=== PATIENT | female | born 1985 | race Caucasian/White ===

== ENCOUNTER 2020-01-11 13:37 | Emergency (ER) | payer SELFPAY ==
[2020-01-11 13:56] VITALS: BP 124/83; PULSE 77; RESP 16; TEMP 36.5; O2SAT 100
[2020-01-11 14:56] VITALS: BP 138/89; PULSE 73; RESP 18; O2SAT 100
--- NOTE | 2020-01-11 15:09 | ED_ITS ---
HPI - General: Chief complaint: Vaginal Bleeding Stated complaint: VAG BLEEDING/ 9 WEEKS PREG Time Seen by Provider: 01/11/20 14:56 Source: patient Mode of arrival: ambulatory Limitations: no limitations History of Present Illness: HPI Narrative: 34-year-old female who is currently 8 to 9 weeks states she has had vaginal bleeding over the last 4 days. Patient states that she been passing very small clots and denies any tissue. She had very slight abdominal cramps rates a 2 out of 10. Denies any worsening improving factors. She is unsure what her blood type is. Denies any vomiting. Date of Last Menstrual Period: 11/05/19 Associated symptoms: Reports abdominal pain; Deny headache(s) Related Data: : 5 Review of Systems Const: Denies: fever(s), chills, body aches or change in appetite Eyes: Denies: blurry vision or eye discomfort ENMT: Denies: throat pain or dental pain Card: Denies: chest pain Resp: Denies: dyspnea GI: Reports: abdominal pain : Reports: vaginal bleeding Musc: Denies: neck pain or back pain Skin/Breast: Denies: rash Neuro: Denies: headache(s) Psych: Denies: depression Shankar/Lymph: Denies: easy bruising All/Imm: Denies: urticaria PFSH ED PFSH: Social History (Updated 01/11/20 @ 14:01 by Ethan Watkins RN) Smoking and tobacco status: never smoked Alcohol intake: current Alcohol intake frequency: holidays/special occasions only Substance/Drug Use: never Female Reproductive History: Date of last menstrual period: 11/05/19 : 5 Physical Exam Const: COMMON NORMALS: no acute distress, patient oriented x3 and healthy appearing HENMT: COMMON NORMALS: normocephalic and atraumatic HEAD & SCALP: normocephalic and atraumatic Eye: COMMON NORMALS: Equal, round and reactive pupils present and EOMs intact bilaterally PUPIL: Yes Equal, round and reactive pupils present Neck/C-Spine: COMMON NORMALS: full ROM and supple Chest: COMMONS NORMALS: normal inspection of the chest and normal palpation of entire chest wall Resp: COMMON NORMALS: normal respiratory effort, No retractions, No use of accessory muscles and clear to auscultation bilaterally AUSCULTATION: clear to auscultation bilaterally Cardio: COMMON NORMALS: regular rate, regular rhythm and No murmurs present (Cardio) RATE: regular rate RHYTHM: regular rhythm GI: COMMON NORMALS: Normal to inspection, nondistended, normoactive bowel sounds present, Soft to palpation, non-tender and no masses PALPATION: Yes Soft to palpation Extremity: COMMON NORMALS: normal to inspection and full ROM Neuro: COMMON NORMALS: patient oriented x3, moves all extremities and no focal motor deficits Psych: COMMON NORMALS: mental status grossly normal, Normal thought process present and cooperative THOUGHT PROCESS: Normal thought process present Skin: COMMON NORMALS: no rashes or lesions noted and no wounds GENERAL SKIN EXAM: no rashes or lesions noted Course Vital Signs: Vital signs: Vital Signs Temperature 97.7 F 01/11/20 13:56 Pulse Rate 73 01/11/20 14:56 Respiratory Rate 18 01/11/20 14:56 Blood Pressure 138/89 01/11/20 14:56 Pulse Oximetry 100 01/11/20 14:56 MDM - OB/Uterine Contractions MDM Narrative: Medical decision making narrative: Patient presents here with threatened miscarriage. Patient's not having a large amount of bleeding. Her bedside ultrasound here showed IUP consistent with dates with heart rate of 148. Patient's blood type is a positive. She is stable for discharge and is to follow-up with [facility] and return if worsening. She understands and agrees to plan. Lab Data: Labs: Lab Results 01/11/20 01/11/20 Range/Units 14:16 14:16 Ser , [place]Qnt 28506.00 mIU/mL Blood Type A Positive Rho(D) Type Positive Discharge Plan Discharge Patient Disposition: Home Clinical Impression: Threatened miscarriage Condition: Stable Prescriptions: No Action cephalexin 500 mg capsule 500 mg PO Q6H RF: 0 Discharge Orders: Discharge Order (Routine); Ordered 01/11/20 Ordered By: Tatyana Guzman Referrals: Max Carbajal MD [Primary Care Provider] - 1-3 days Discharge Diet: Advance as tolerated Discharge Activity: Resume usual activity Patient Instructions: Threatened Miscarriage (ED) Coding Level of Care Code ED Stained Glass Installer for g Fwd Exam Comprehensive
[2020-01-11 15:45] VITALS: BP 132/86; PULSE 72; RESP 16; TEMP 37.1; O2SAT 96
--- NOTE | 2020-01-12 09:26 | DCPLANNER ---
recycling operations manager had message to schedule a follow up appointment for patient with Dr. Carbajal at [facility]. recycling operations manager called [facility], a follow up appointment was scheduled for Friday, January 17, 2020 at 8:[address] Siegel. recycling operations manager told clinic that the referral was for Dr. Carbajal, corrections caseworker was told that patient seen Dr. Siegel with her last , so they would schedule the appointment with Dr. Siegel. recycling operations manager asked that if patient wanted to change the appointment to be scheduled with Dr. Carbajal would there be any problems. recycling operations manager was told that there would not be any problems. recycling operations manager called patient and informed her of the scheduled appointment, patient stated that she wanted to see Dr. Carbajal. recycling operations manager offered to call and reschedule the appointment, patient stated that she would call and reschedule the appointment with Dr. Carbajal.
== END 2020-01-11 15:49 | disposition home or self-care (01) ==
PROVIDERS: Emergency Provider Emergency Medicine; PCP Family Medicine
DX: O20.0 Threatened abortion (principal); Z3A.08 8 weeks gestation of pregnancy
CPT/HCPCS: 12345; 36415; 84702; 86900; 99281; 99282

== ENCOUNTER 2020-07-22 05:00 | Inpatient (IN) | payer SELFPAY ==
--- NOTE | 2020-07-03 09:37 | ANES.PREANE2 ---
Pre-Anesthetic Assessment Pre-Anesthetic Assessment: Height/Weight: Height 1.7 m Preop Diagnosis: IUP Proposed Procedure: Operation Date: 07/22/20 07:00 Proposed Procedures p Section Repeat(Not Applicable) - Max Carbajal MD Familial anesthetic complications: none Social: Social History: No alcohol and No tobacco Exam: Pre-Anes Outpt Exam: alert, oriented x 3, clear to auscultation bilaterally and regular rate & rhythm Airway: Cervical ROM: WNL MP: 3 Dentition: Chipped (front) Anesthetic Plan: ASA status: 2 Anesthesia: Regional (specify below) Risk of > 500 ml blood loss (7ml/kg in children): Yes, adequate IV access and fluids planned PFSH Anesthesia PFSH: Social History (Updated 01/11/20 @ 14:01 by Ethan Watkins RN) Smoking and tobacco status: never smoked Alcohol intake: current Alcohol intake frequency: holidays/special occasions only Female Reproductive History: Date of last menstrual period: 11/05/19 Data Anesthesia Cardiac Studies: No Data to Display
[2020-07-22] VITALS (23 sets, daily range): BP systolic 95–156; BP diastolic 62–94; PULSE 75–101; RESP 14–18; TEMP 36–36.8; O2SAT 98–100; BMI 24.4
[2020-07-22 05:31] LABS: Basophils # 0.1 10^3/uL (0.0-0.1); Basophils % 0.5 %; Eosinophils # 0.1 10^3/uL (0.0-0.8); Eosinophils % 1.5 %; Hematocrit 36.9 % (37.0-47.0); Hemoglobin 11.3 g/dL (11.5-15.3); Lymphocytes # 2.1 10^3/uL (0.8-4.8); Lymphocytes % 22.7 %; Mean Corpuscular HGB Conc 30.6 g/dL (30.0-36.0); Mean Corpuscular Hemoglobin 25.3 pg (28.0-34.0); Mean Corpuscular Volume 82.6 fL (81-99); Monocytes # 0.7 10^3/uL (0.2-0.9); Monocytes % 7.9 %; Neutrophils # 6.15 10^3/uL (1.8-7.7); Nucleated Red Blood Cells % 0 %; Platelet Count 350 10^3/cmm (130-400); Red Blood Count 4.47 10^6/uL (4.1-5.3); White Blood Count 9.2 10^3/uL (4.0-10.0)
[2020-07-22] MEDS: lactated ringers 1,000 ML 999 ML IV (05:42)
--- NOTE | 2020-07-22 06:41 | P.HP_ITS ---
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 She has a history of a previous uterine rupture during a TOLAC. Thankfully, both the patient and the baby did well. As result, we were proceeding with a section at 37 weeks. Her is been unremarkable. The patient declined much of her blood work because of her self-pay status. Her blood type is A positive. Present Details : 3 Para: 2 Date of Last Menstrual Period: 11/05/19 Calculated Date of Delivery: 08/11/20 Gestational Age Based on Last Menstrual Period: 37 Labs Rubella: Immune RPR: Negative GBS: Unknown Review of Systems General: Reports: 10 or more systems reviewed and unremarkable except in HPI and below Const: Reports: fatigue; Denies: fever(s) Eyes: Denies: change in vision Card: Denies: chest pain Shankar/Lymph: Denies: easy bruising Medications/Allergies Home Medications Medication Instructions Recorded Confirmed Last Taken Type cephalexin 500 mg PO Q6H 01/11/20 01/11/20 01/11/20 History Allergies Allergy/AdvReac Type Severity Reaction Status Date / Time No Known Allergies Allergy Verified 01/11/20 14:00 PFSH 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 PFSH: Social History Smoking and tobacco status: never smoked Alcohol intake: current Alcohol intake frequency: holidays/special occasions only Vitals/I&O/Wt Last Vital Signs Temp 96.8 F L 07/22/20 05:31 Pulse 78 07/22/20 05:31 BP 110/74 07/22/20 05:31 Weight last 48 hrs Weight 156 lb Physical Exam Const: COMMON NORMALS: patient oriented x3 and alert HENMT: COMMON NORMALS: moist oral mucous membranes HEAD & SCALP: normal to inspection Chest: COMMONS NORMALS: normal inspection of the chest Resp: COMMON NORMALS: clear to auscultation bilaterally AUSCULTATION: clear to auscultation bilaterally Cardio: COMMON NORMALS: regular rate and regular rhythm RATE: regular rate RHYTHM: regular rhythm GI: INSPECTION: Yes normal to inspection and Yes other (Gravid) Extremity: COMMON NORMALS: normal to inspection GENERAL: Yes edema (Trace) Neuro: COMMON NORMALS: patient oriented x3, moves all extremities and no sensory deficits noted SENSORIUM/ORIENTATION: Yes alert Psych: COMMON NORMALS: mental status grossly normal Skin: COMMON NORMALS: no rashes or lesions noted GENERAL SKIN EXAM: no rashes or lesions noted Data : 07/22/20 05:25 A&P Assessment and plan (1) History of rupture of uterus: We will proceed with a section. We have discussed the risks of bleeding, infection, and damage to intra-abdominal organs. She has no further questions and wishes to proceed. Status: Acute (2) 37 weeks gestation of : Status: Acute Attestations Medical Necessity Statement*: I Anticipate routine and post C-secti on care. Coding Level of Care Code Acute Quantitative Analyst for Cezar Sarmiento Diagnoses History of rupture of uterus Z87.828 37 weeks gestation of Z3A.37
[2020-07-22] MEDS: citric acid-sodium citrate 30 mL UDC PO (06:47)
[2020-07-22] MEDS: famotidine 20 mg/2 mL INJ IVP (06:47)
[2020-07-22] MEDS: metoclopramide 5 mg/mL SDV 2 mL 10 MG IVP (06:47)
--- NOTE | 2020-07-22 06:47 | P.ANESUD_ITS ---
Pre-Anesthetic Update Pre-Anesthetic Assessment: Date of Surgery/Procedure: 07/22/20 Preop Kaylynn gnosis: IUP Proposed Procedure: Operation Date: 07/22/20 07:00 Proposed Procedures p Section Repeat(Not Applicable) - Max Carbajal MD Any changes to Pre-Anesthetic Assessment?: No Last Intake: Intake Last Liquid Date 07/21/20 Last Liquid Time 21:00 Last Solid Date 07/21/20 Last Solid Time 21:00 Labs Last 48hrs: Laboratory Results - last 48 hr 07/22/20 05:25 WBC 9.2 RBC 4.47 Hgb 11.3 L Hct 36.9 L MCV 82.6 MCH 25.3 L MCHC 30.6 RDW 14.0 Plt Count 350 MPV 11.0 H Neut % (Auto) 67.0 Lymph % (Auto) 22.7 Posey % (Auto) 7.9 Eos % (Auto) 1.5 Baso % (Auto) 0.5 Neut # (Auto) 6.15 Lymph # (Auto) 2.1 Posey # (Auto) 0.7 Eos # (Auto) 0.1 Baso # (Auto) 0.1 Nucleated RBC % (a uto) 0 Nucleated RBCs # 0.0 Vitals: Temperature 96.8 F L 07/22/20 05:31 Temperature Source Temporal Artery S can 07/22/20 05:18 Pulse Rate 78 07/22/20 05:31 Pulse Rhythm 07/22/20 05:20 Pulse Strength 3+ Normal 07/22/20 05:20 Respiratory Effort Non-Labored 07/22/20 05:20 Respiratory Depth Normal 07/22/20 05:20 Respiratory Patter n 07/22/20 05:20 Blood Pressure 110/74 07/22/20 05:31 Oxygen Delivery Me thod 07/22/20 06:03 Exam: Pre-Anes Outpt Exam: alert, oriented x 3, clear to auscultation bilaterally and regular rate & rhythm Cardiac Studies: No Data to Display
--- NOTE | 2020-07-22 08:17 | PM.OP ---
Operative Report Date of procedure: July 22, 2020 Pre-op Diagnosis: History of uterine rupture, 37 weeks gestational age Post-op diagnosis: same Procedure Done: 1. Repeat lower transverse section Specimens removed/disposition: 1. Male with a weight of 5 pounds and Apgars of 8 and 9 Pathology: none sent Surgeon: Max Carbajal Anesthesia: Other (Spinal) Estimated blood loss (mL): 400 Condition: stable Disposition: floor (OB) Brief History: Refer to history and physical Procedure: The patient was brought back to the operating room where she was prepped and draped in usual sterile fashion. Anesthesia was found to be adequate. A lower transverse skin incision was then made with a #10 blade. I then dissected down to the underlying subcutaneous tissue until arriving at the prerectal fascia. The fascia was then nicked with the scalpel bilaterally. The fascial incisions were then carried laterally with Sherman scissors. Attention was then turned to the superior aspect of the incision which was grasped with kochers and tented up away from the underlying rectus abdominis muscles. The muscles were then dissected away from the fascia manually, and later with Sherman scissors. Attention was then turned to the inferior aspect of the incision, and the fascia was dissected away from the underlying muscle in similar fashion. The rectus abdominis muscles were then spread manually. The peritoneum was entered manually. Excellent visualization of the uterus was noted. A lower transverse uterine incision was then made with a #10 blade. Upon arriving at the intrauterine cavity, the uterine incision was then extended manually. The was noted to be in vertex position. The baby was delivered without difficulty. After delivery of the head, the mouth and nose were suctioned at the site of the incision. There was no meconium. There was no nuchal cord. The remainder of the body was then delivered and placed on the abdomen. The cord was cut and clamped. The baby was then handed to the waiting nurse. The placenta was removed intact. The uterus was externalized. The intrauterine cavity was cleansed of any remaining debris. The uterine incision was reapproximated in 1 layer because of the thin uterine wall.. The first layer was performed with 0 Vicryl in a running locked stitch. The uterus was replaced into the abdomen. The peritoneum was then irrigated with warm saline. I reexamined the uterine incision and found it to be hemostatic. The rectus abdominis muscles were then reapproximated using 0 Vicryl in a running stitch. The fascia was then reapproximated using 0 Vicryl in running stitch. The skin was reapproximated using ronald. A sterile dressing was placed. All counts were correct x2. Both the mother and baby were in stable condition. Associated Problem List Diagnoses (1) 37 weeks gestation of : (2) History of rupture of uterus:
--- NOTE | 2020-07-22 09:35 | PC.NURSE ---
THIS IS PATIENT'S 3RD CHILD AND SHE IS VERY EDUCATED AND DOESN'T HAVE ANY QUESTIONS AT THIS TIME.
[2020-07-22] MEDS: ondansetron 2 mg/ML SDV 2 mL 4 MG IVP (09:43)
[2020-07-22] MEDS: promethazine 25 mg/mL SDV 1 mL IM (12:23)
[2020-07-22] MEDS: dextrose 5%-lactated ringers 1,000 ML 125 ML IV (14:14)
[2020-07-22] MEDS: ketorolac 30 mg/mL INJ IVP ×2 (15:45→22:14)
--- NOTE | 2020-07-22 16:21 | PC.NURSE ---
1530 PT WALKED IN GARZA, DID REALLY GOOD. BACK TO HER ROOM AND SITTING IN CHAIR.
--- NOTE | 2020-07-22 16:23 | PC.NURSE ---
1430 PT UP TO CHAIR, DID GREAT GETTING UP.
[2020-07-22] MEDS: docusate sodium 100 mg Capsule PO (20:18)
[2020-07-22 20:29] LABS: Hematocrit 30.1 % (37.0-47.0); Hemoglobin 9.5 g/dL (11.5-15.3); Mean Corpuscular HGB Conc 31.6 g/dL (30.0-36.0); Mean Corpuscular Hemoglobin 25.7 pg (28.0-34.0); Mean Corpuscular Volume 81.6 fL (81-99); Mean Platelet Volume 10.8 fL (7.4-10.4); Platelet Count 262 10^3/cmm (130-400); Red Blood Count 3.69 10^6/uL (4.1-5.3); Red Cell Distribution Width 13.9 % (12.1-15.1); White Blood Count 11.3 10^3/uL (4.0-10.0)
[2020-07-23] MEDS: ketorolac 30 mg/mL INJ IVP (03:42)
[2020-07-23 03:46] VITALS: BP 105/69; PULSE 71; RESP 16; TEMP 36.8
--- NOTE | 2020-07-23 07:39 | PM.OBGYDC ---
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 The was unremarkable. The course was also unremarkable. Her bleeding was within normal limits. Her urine output was appropriate. Her pain was well controlled. She breast-fed well. There were no concerns. Information Peripartum Data: Infant Delivery Method: Physical Exam Narrative: EXAM NARRATIVE: She is in no acute distress Lungs are clear auscultation bilaterally Her heart has a regular rate and rhythm Her fundus is below the umbilicus and firm Her dressing is clean, dry and intact Her extremities have trace edema Urinary Catheter Management^: Lopez: Cath Placed During This Visit: yes, but has since been removed by the nurse Reason for Continuing Indwelling Catheter: Perioperative Use in Selected Surgeries Urinary Catheter Date of Insertion: 07/22/20 Urinary Catheter Time of Insertion: 07:10 Date Urinary Catheter Removed: 07/22/20 Time Urinary Catheter Discontinued: 18:00 Discharge Data Data Completed and Pending: Labs from last 24 hours 07/22/20 20:15 WBC 11.3 H RBC 3.69 L Hgb 9.5 L Hct 30.1 L MCV 81.6 MCH 25.7 L MCHC 31.6 RDW 13.9 Plt Count 262 MPV 10.8 H Vitals: Last Vital Signs Temp 98.3 F 07/23/20 03:46 Pulse 71 07/23/20 03:46 Resp 16 07/23/20 03:46 BP 105/69 07/23/20 03:46 Pulse Ox 100 07/22/20 08:25 Discharge Plan Discharge Patient Disposition: Home Condition: Stable Prescriptions: New ibuprofen 800 mg Tablet 800 mg PO TID Qty: 30 RF: 0 hydrocodone-acetaminophen 5-325 mg Tablet 1 - 2 tab PO Q6H PRN (Reason: Moderate To Severe Pain) Qty: 20 RF: 0 Discontinued cephalexin 500 mg capsule 500 mg PO Q6H RF: 0 Discharge Orders: Discharge Order (Routine); Ordered 07/23/20 Ordered By: Max Carbajal Referrals: Max Carbajal MD [Primary Care Provider] - 4-7 days (Also needs 6 week follow up) Discharge Diet: Usual diet Discharge Activity: Limit activity as instructed Patient Instructions: Depression (GEN), Pre-eclampsia and Eclampsia (DC), Bleeding (DC), OB Discharge Report, OB Food/Drug Interaction Guide, OB Proud Parent Packet, OB Vaginal Deliveries, Abnormal Bleeding Discharge Attestations 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
[2020-07-23] MEDS: ibuprofen 800 mg tablet PO (09:28)
[2020-07-23] MEDS: ferrous sulfate EC 325 mg Tablet PO (09:28)
[2020-07-23] MEDS: prenatal vitamin Capsule 1 CAP PO (09:28)
[2020-07-23] MEDS: docusate sodium 100 mg Capsule PO (09:28)
[2020-07-23 09:30] VITALS: BP 121/84; PULSE 103; RESP 18; TEMP 36.9
[2020-07-23] MEDS: HYDROcodone-acetaminophen 5-325 mg Tablet PO (11:36)
[2020-07-23 12:30] VITALS: BP 131/86; PULSE 89; RESP 17; TEMP 36.7
== END 2020-07-23 12:35 | disposition home or self-care (01) | DRG 788 ==
PROVIDERS: Admitting Provider Family Medicine; PCP Family Medicine; Visit Provider Family Medicine
PROC: 10D00Z1 Extraction of Products of Conception, Low, Open Approach (ICD-10-PCS; CPT 59514; principal; 2020-07-22 07:00)
DX: O34.211 Maternal care for low transverse scar from previous cesarean delivery (principal); N85.8 Other specified noninflammatory disorders of uterus; Z3A.37 37 weeks gestation of pregnancy; Z37.0 Single live birth
CPT/HCPCS: 12345; 36415; 51702; 59025; 59409; 85025; 85027; 96372; 96374; 96375; 98960; 99211; J0690; J1885; J2274; J2405; J2550; J2765; J3010; J3490

== ENCOUNTER 2021-07-29 06:08 | Emergency (ER) | payer SELFPAY ==
[2021-07-29 06:19] VITALS: BP 111/75; PULSE 81; RESP 18; TEMP 36.8; O2SAT 100; BMI 21.1
[2021-07-29 06:37] VITALS: BP 117/71; PULSE 86; RESP 15; O2SAT 100
--- NOTE | 2021-07-29 06:52 | ED_ITS ---
HPI - Dental/Oral General: Chief complaint: Dental/Oral Stated complaint: tooth pain with nausia, numbness in hand, Time Seen by Provider: 07/29/21 06:28 Source: patient Mode of arrival: ambulatory History of Present Illness: 35-year-old female presents to the emergency room with complaints of dental pain with swallowing on the right mandible. Not had any drainage she has an appointment with the dentist later today. She woke up this morning had essentially spasms in her hands sounds like she had some carpal spasms, she was having severe pain it is passed now she took an oxycodone last night that she had leftover from a from nearly a year ago and then a tramadol at around 3 AM. This also caused quite a bit of nausea. She has not been able to eat or drink much in the last 12 to 15 hours. MD Complaint: tooth pain Location: Tooth # (30) Teeth map: 1. Onset (ago): hour(s) Duration: constant Severity: severe Relieving factors: nothing Exacerbating factors: nothing Associated symptoms: Reports gum swelling; Denies ear or mastoid pain, fever(s), sore throat or tongue swelling Treatment prior to arrival: oral analgesic Review of Systems Const: Denies: fever(s) ENMT: Denies: ear or mastoid pain Resp: Denies: dyspnea, productive cough or non-productive cough GI: Reports: nausea; Denies: abdominal pain, vomiting, diarrhea or constipation All/Imm: Denies: tongue swelling PFSH ED PFSH: Medical History History of rupture of uterus Surgical History Status post Social History Smoking and tobacco status: never smoked Alcohol intake: current Alcohol intake frequency: holidays/special occasions only Female Reproductive History: Date of last menstrual period: 11/05/19 Physical Exam Const: GENERAL APPEARANCE: cooperative and comfortable ORIENTATION/CONSCIOUSNESS: Yes awake, Yes oriented to person, Yes oriented to place and Yes oriented to time HENMT: COMMON NORMALS: normocephalic, atraumatic, hearing grossly normal bilaterally, external ears normal, EAC's normal, TM's normal bilaterally, Normal nasal mucous membranes and turbinates present, moist oral mucous membranes and oropharynx normal HEAD & SCALP: normocephalic and atraumatic NOSE: Normal nasal mucous membranes and turbinates present EXTERNAL EAR: Yes external ears normal EXTERNAL AUDITORY CANAL: EAC's normal TYMPANIC MEMBRANE: TM's normal bilaterally Eye: COMMON NORMALS: Equal, round and reactive pupils present, EOMs intact bilaterally, conjunctivae normal and no scleral icterus CONJUNCTIVA: Yes conjunctivae normal PUPIL: Yes Equal, round and reactive pupils present Neck/C-Spine: COMMON NORMALS: full ROM, no lymphadenopathy, supple and no JVD Lymph: LYMPHATIC: no lymphadenopathy noted and no lymphedema noted Resp: COMMON NORMALS: normal respiratory effort, No retractions, No use of a ccessory muscles and clear to auscultation bilaterally AUSCULTATION: clear to auscultation bilaterally Cardio: COMMON NORMALS: no JVD, regular rate, regular rhythm and No murmurs present (Cardio) RATE: regular rate RHYTHM: regular rhythm Neuro: SENSORIUM/ORIENTATION: Yes oriented to person, Yes oriented to place and Yes oriented to time Skin: COMMON NORMALS: no rashes or lesions noted GENERAL SKIN EXAM: no rashes or lesions noted Course Vital Signs: Vital signs: Vital Signs Temperature 98.2 F 07/29/21 06:19 Pulse Rate 86 07/29/21 06:37 Respiratory Rate 22 H 07/29/21 07:09 Blood Pressure 117/71 07/29/21 06:37 Pulse Oximetry 100 07/29/21 06:37 MDM - Dental/Oral Medical Decision Making Dental abscess. Patient is given clindamycin here and IV fluids she was having a very difficult time when she first arrived pain was controlled with IV analgesics also give her some Ativan for her anxiety. This improved significantly. Will discharge home on Augmentin 875 twice daily appropriate warnings given for potential side effects particularly vaginal yeast infection. She has an appointment later today with her dentist. Also gave her hydrocodone to use as needed for pain advance diet as per dentist advised her to only takes small amounts of food with pain medicine until she sees a dentist today. Medical Records I reviewed the patient's medical records. Discharge Plan Discharge Patient Disposition: Home Clinical Impression: Dental abscess, Hyperventilation syndrome Condition: Stable Prescriptions: New hydrocodone-acetaminophen 5-325 mg tablet 1 tab PO Q6H PRN (Reason: pain) Qty: 20 0RF ondansetron HCl 4 mg tablet 4 mg PO Q6H PRN (Reason: nausea and vomiting) Qty: 20 0RF amoxicillin-pot clavulanate 875-125 mg tablet 1 tab PO BID Qty: 20 0RF No Action ibuprofen 800 mg Tablet 800 mg PO TID Qty: 30 0RF hydrocodone-acetaminophen 5-325 mg Tablet 1 - 2 tab PO Q6H PRN (Reason: Moderate To Severe Pain) Qty: 20 0RF Discharge Orders: Discharge ED (Routine); Ordered 07/29/21 Ordered By: Bill Blake Referrals: Max Carbajal MD [Primary Care Provider] - Discharge Diet: Clear Liquid Discharge Activity: Increase activity as tolerated Patient Instructions: Opioid Safety Activity Restrictions/Additional Instructions: Follow-up with your dentist as soon as you are able for definitive care. Coding Level of Care Code ED Batching Operator for Rupalg Fwd Exam Comprehensive
[2021-07-29 07:09] VITALS: RESP 22
[2021-07-29] MEDS: morphine 4 mg/mL SDV 1 mL IVP (07:09)
[2021-07-29] MEDS: ondansetron 2 mg/ML SDV 2 mL 4 MG IVP (07:10)
[2021-07-29] MEDS: clindamycin 600 MG/50 ML PREMIX 100 MG IV (07:12)
[2021-07-29] MEDS: lactated ringers 1,000 ML 999 ML IV (07:13)
[2021-07-29] MEDS: LORazepam 2 mg/mL INJ 1 mL 1 MG IVP (07:31)
== END 2021-07-29 09:13 | disposition home or self-care (01) ==
PROVIDERS: Emergency Provider Family Medicine; PCP Family Medicine
DX: K04.7 Periapical abscess without sinus (principal); F45.8 Other somatoform disorders; I10 Essential (primary) hypertension; R00.2 Palpitations
CPT/HCPCS: 96365; 96375; 99284; J2060; J2270; J2405; J3490

== ENCOUNTER 2023-01-05 10:26 | Day surgery (SDC) | payer SELFPAY ==
--- NOTE | 2023-01-05 08:34 | P.ANESASSM_ITS ---
Pre-Anesthetic Assessment Height/Weight: Height 1.7 m Preop Diagnosis: Scheduled Was Beta Cassius taken within 24 hours: N/A Was Clonidine taken within 24 hours: N/A Social No tobacco Exam alert, oriented x 3, clear to auscultation bilaterally and regular rate & rhythm Airway Submandibular: within normal limits Cervical ROM: within normal limits Mallampati: Class I History/ROS No significant history except as noted and No significant complaints Anesthetic Plan ASA status: 1 Anesthesia: Regional (specify below) Other: Spinal for repeat Risk of > 500 ml blood loss (7ml/kg in children): Yes, adequate IV access and fluids planned Medications/Allergies Home Medications Medication Instructions Recorded Confirmed Last Taken Type hydrocodone 5 mg-acetaminophen 325 1 - 2 tab PO Q6H PRN Moderate To 07/23/20 Unknown Rx mg tablet Severe Pain #20 tabs ibuprofen 800 mg tablet 800 mg PO TID #30 tabs 07/23/20 Unknown Rx amoxicillin 875 mg-potassium 1 tab PO BID #20 tabs 07/29/21 Unknown Rx clavulanate 125 mg tablet hydrocodone 5 mg-acetaminophen 325 1 tab PO Q6H PRN pain #20 tabs 07/29/21 Unknown Rx mg tablet ondansetron HCl 4 mg tablet 4 mg PO Q6H PRN nausea and 07/29/21 Unknown Rx vomiting #20 tabs Allergies Allergy/AdvReac Type Severity Reaction Status Date / Time No Known Allergies Allergy Verified 01/11/20 14:00 [facility] Anesthesia Medical History History of rupture of uterus Surgical History Status post Social History Smoking and tobacco status: never smoked Alcohol intake: current Alcohol intake frequency: holidays/special occasions only Substance/Drug Use: never Data Anesthesia Cardiac Studies: No Data to Display
== END 2023-01-05 12:00 | disposition home or self-care (01) ==
LOC: OR 02-18 10:26
PROVIDERS: PCP Family Medicine; Visit Provider Family Medicine
DX: Z01.818 Encounter for other preprocedural examination (principal)

== ENCOUNTER 2023-01-11 05:09 | Inpatient (IN) | payer SELFPAY ==
[2023-01-11] VITALS (41 sets, daily range): BP systolic 109–189; BP diastolic 44–124; PULSE 66–115; RESP 16–18; TEMP 36.7; O2SAT 91–100; BMI 23.6
[2023-01-11] MEDS: lactated ringers 1,000 ML 999 ML IV (06:01)
[2023-01-11 06:07] LABS: Basophils # 0.1 10^3/uL (0.0-0.1); Basophils % 0.5 %; Eosinophils # 0.2 10^3/uL (0.0-0.8); Eosinophils % 1.5 %; Hematocrit 36.2 % (36-47); Lymphocytes # 2.3 10^3/uL (0.8-4.8); Lymphocytes % 23.8 %; Mean Corpuscular HGB Conc 31.2 g/dL (30-55); Mean Corpuscular Hemoglobin 24.9 pg (27-33); Mean Corpuscular Volume 79.9 fl (85-98); Mean Platelet Volume 10.5 fL (7.4-10.4); Neutrophils % 63.8 %; Nucleated Red Blood Cells % 0 %; Platelet Count 324 10^3/cmm (157-399); Red Blood Count 4.53 10^6/uL (3.85-5.65); Red Cell Distribution Width 17.1 % (12.1-15.1); White Blood Count 9.72 10^3/uL (3.29-11.43)
--- NOTE | 2023-01-11 06:48 | P.HP_ITS ---
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 She has a history of a previous uterine rupture during a TOLAC. Thankfully the patient and the did well. Regardless, she is presenting for a repeat section at 37 weeks due to her history of uterine rupture. The patient declined much of her work-up because of her valve placed status. Her blood type is a positive. Present Details : 6 Para: 3 Labs Rubella: Non-Immune RPR: Unknown GBS: Unknown Review of Systems General: Reports: 10 or more systems reviewed and unremarkable except in HPI and below Const: Reports: fatigue; Denies: fever(s) Eyes: Denies: change in vision Card: Denies: chest pain Musc: Reports: back pain Shankar/Lymph: Denies: easy bruising Medications/Allergies Home Medications Medication Instructions Recorded Confirmed Last Taken Type hydrocodone 5 mg-acetaminophen 325 1 - 2 tab PO Q6H PRN Moderate To 07/23/20 Unknown Rx mg tablet Severe Pain #20 tabs ibuprofen 800 mg tablet 800 mg PO TID #30 tabs 07/23/20 Unknown Rx amoxicillin 875 mg-potassium 1 tab PO BID #20 tabs 07/29/21 Unknown Rx clavulanate 125 mg tablet hydrocodone 5 mg-acetaminophen 325 1 tab PO Q6H PRN pain #20 tabs 07/29/21 Unknown Rx mg tablet ondansetron HCl 4 mg tablet 4 mg PO Q6H PRN nausea and 07/29/21 Unknown Rx vomiting #20 tabs Allergies Allergy/AdvReac Type Severity Reaction Status Date / Time No Known Allergies Allergy Verified 01/11/20 14:00 PFSH MEDICAL BILLING COORDINATOR PFSH: Medical History History of rupture of uterus Surgical History Status post Social History Smoking and tobacco status: never smoked Alcohol intake: current Alcohol intake frequency: holidays/special occasions only Substance/Drug Use: never Vitals/I&O/Wt Last Vital Signs Pulse 88 01/11/23 05:18 Resp 16 01/11/23 05:22 BP 113/81 01/11/23 05:18 O2 Del Method Room Air 01/11/23 05:22 Weight last 48 hrs Weight 151 lb Physical Exam Const: COMMON NORMALS: patient oriented x3 and alert HENMT: COMMON NORMALS: moist oral mucous membranes HEAD & SCALP: normal to inspection Chest: COMMONS NORMALS: normal inspection of the chest Resp: COMMON NORMALS: clear to auscultation bilaterally AUSCULTATION: clear to auscultation bilaterally Cardio: COMMON NORMALS: regular rate and regular rhythm RATE: regular rate RHYTHM: regular rhythm GI: INSPECTION: Yes normal to inspection and Yes other (Gravid) Extremity: COMMON NORMALS: normal to inspection GENERAL: Yes edema (Trace) Neuro: COMMON NORMALS: patient oriented x3, moves all extremities and no sensory deficits noted SENSORIUM/ORIENTATION: Yes alert Psych: COMMON NORMALS: mental status grossly normal Skin: COMMON NORMALS: no rashes or lesions noted GENERAL SKIN EXAM: no rashes or lesions noted Data 01/11/23 06:00 A&P Assessment and plan (1) 37 weeks gestation of : We will proceed with a repeat section. I discussed with the patient first the procedure during her most recent office visit. We discussed the risks of bleeding, infection, damage intra-abdominal organs. She had no further questions and wishes to proceed. (2) History of rupture of uterus: Attestations Medical Necessity Statement*: I anticipate routine and post care. Coding Level of Care Code Acute Code for Chg Fwd Diagnoses 37 weeks gestation of Z3A.37 History of rupture of uterus Z87.828
[2023-01-11] MEDS: metoclopramide 5 mg/mL SDV 2 mL 10 MG IVP (06:54)
[2023-01-11] MEDS: citric acid-sodium citrate 30 mL UDC PO (06:54)
[2023-01-11] MEDS: famotidine 20 mg/2 mL INJ IVP (06:54)
--- NOTE | 2023-01-11 08:15 | P.OP_ITS ---
Operative Report Date of procedure: January 11, 2023 Pre-op diagnosis: 1. 37-year-old 6 female at 37 weeks estimated gestational age presenting for repeat section due to history of and uterine rupture Post-op diagnosis: Status post lower transverse section Procedure done: Lower transverse section Specimens removed/disposition: 1. Male with a weight of 6 pounds 9 ounces and Apgars of 9 and 9 2. Placenta with a three-vessel cord. Surgeon: Max Carbajal MD Estimated blood loss (mL): 400 Findings: 1. A true knot was noted in the umbilical cord. Procedure: The patient was brought back to the operating room where she was prepped and draped in usual sterile fashion. Anesthesia was found to be adequate. A lower transverse skin incision was then made with a #10 blade. I then dissected down to the underlying subcutaneous tissue until arriving at the prerectal fascia. The fascia was then nicked with the scalpel bilaterally. The fascial incisions were then carried laterally with Sherman scissors. Attention was then turned to the superior aspect of the incision which was grasped with kochers and tented up away from the underlying rectus abdominis muscles. The muscles were then dissected away from the fascia manually, and later with Sherman scissors. Attention was then turned to the inferior aspect of the incision, and the fascia was dissected away from the underlying muscle in similar fashion. The rectus abdominis muscles were then spread manually. The peritoneum was entered manually. Excellent visualization of the uterus was noted. A lower transverse uterine incision was then made with a #10 blade. Upon arriving at the intrauterine cavity, the uterine incision was then extended manually. The was noted to be in vertex position. The baby was delivered without difficulty and placed on the abdomen. The cord was cut and clamped. The baby was then handed to the waiting nurse. There was no meconium. There was a nuchal cord x1 which was easily reduced prior to delivery of the baby shoulders the placenta was removed intact. The uterus was externalized. The intrauterine cavity was cleansed of any remaining debris. The uterine incision was reapproximated in 2 layers. The first layer was performed with 0 Vicryl in a running locked stitch. The second layer was an i mbricating stitch also using 0 Vicryl. The uterus was replaced into the abdomen. The peritoneum was then irrigated with warm saline. I reexamined the uterine incision and found it to be hemostatic. The rectus abdominis muscles were then reapproximated using 0 Vicryl in a running stitch. The fascia was then reapproximated using 0 Vicryl in running stitch. The subcutaneous tissue was then reapproximated using 0 Vicryl in a running stitch. The skin was reapproximated using ronald. A sterile dressing was placed. All counts were correct x2. Both the mother and baby were in stable condition. Also of note, the lower transverse portion of the uterus appeared to be structurally intact. Scar tissue was noted, but there was only minimal thinning of the uterine wall.
--- NOTE | 2023-01-11 09:10 | ANE.PACU2 ---
Inpatient post-anesthesia follow up: Airway intact: Yes Vital signs: Temperature 98.1 F Pulse Rate 74 Respiratory Rate 18 Blood Pressure 115/71 Pulse Oximetry 100 Oxygen Delivery Me thod Room Air Oxygen Flow Rate Fraction of Inspir ed Oxygen Hydration adequate: Yes Nausea and vomiting: No Pain level: 1 Mental status: Baseline
--- NOTE | 2023-01-11 09:36 | P.ANESUD_ITS ---
Pre-Anesthetic Update Pre-Anesthetic Assessment: Date of Surgery/Procedure: 01/11/23 Preop Kaylynn gnosis: IUP, previous uterine rupture Proposed Procedure: Operation Date: 01/11/23 07:20 Proposed Procedures p Section Repeat 08611,Z34.83,O34.219,Z87.828(Not Applicable) - Max Carbajal MD Any changes to Pre-Anesthetic Assessment?: No Last Intake: Intake Last Liquid Date 01/10/23 Last Liquid Time 18:00 Last Solid Date 01/10/23 Last Solid Time 18:00 Labs Last 48hrs: Short CBC 01/11/23 Range/Units 06:00 WBC 9.72 (3.29-11.43) 10^ 3/uL Hgb 11.30 (11.27-16.99) g/ dL Hct 36.2 (36-47) % MCV 79.9 L (85-98) fl Plt Count 324 (157-399) 10^3/c mm Neut % (Auto) 63.8 % Neut # (Auto) 6.20 (1.8-7.7) 10^3/u L Blood Bank 01/11/23 06:00 Blood Type A Positive Rho(D) Type Positive Antibody Screen Negative Vitals: Pulse Rate 90 01/11/23 09:06 Pulse Rhythm Regular 01/11/23 05:22 Pulse Strength 3+ Normal 01/11/23 05:22 Respiratory Rate 16 01/11/23 05:22 Respiratory Effort Spontaneous, Non- Labored 01/11/23 05:22 Respiratory Depth Normal 01/11/23 05:22 Respiratory Patter n Normal 01/11/23 05:22 Blood Pressure 130/59 01/11/23 09:06 Oxygen Delivery Me thod Room Air 01/11/23 05:22 Exam: Pre-Anes Outpt Exam: alert, oriented x 3, clear to auscultation bilaterally and regular rate & rhythm Cardiac Studies: No Data to Display
[2023-01-11] MEDS: docusate sodium 100 mg Capsule 200 MG PO ×2 (12:19→17:05)
[2023-01-11] MEDS: dextrose 5%-lactated ringers 1,000 ML 125 ML IV (12:55)
[2023-01-11] MEDS: ondansetron 2 mg/ML SDV 2 mL 4 MG IVP ×2 (12:56→17:05)
[2023-01-11] MEDS: ketorolac 30 mg/mL INJ IVP ×2 (14:53→20:39)
[2023-01-11] MEDS: sodium chloride 0.9% 500 ML 999 ML IV (15:42)
[2023-01-11] MEDS: lanolin oint 7 gm 1 APPLIC TOPICAL (17:05)
[2023-01-11] MEDS: polyethylene glycol 3350 Pkt 17 gm PO (17:06)
[2023-01-11 23:24] LABS: Hematocrit 31.4 % (36-47); Mean Corpuscular HGB Conc 30.9 g/dL (30-55); Mean Corpuscular Hemoglobin 24.9 pg (27-33); Mean Corpuscular Volume 80.7 fl (85-98); Mean Platelet Volume 11.4 fL (7.4-10.4); Platelet Count 293 10^3/cmm (157-399); Red Blood Count 3.89 10^6/uL (3.85-5.65); Red Cell Distribution Width 17.1 % (12.1-15.1)
[2023-01-12 04:21] VITALS: BP 109/68; PULSE 66
[2023-01-12] MEDS: ketorolac 30 mg/mL INJ IVP ×2 (04:24→09:06)
[2023-01-12 04:30] VITALS: RESP 15; TEMP 36.6
--- NOTE | 2023-01-12 07:29 | P.DS_ITS ---
Discharge Providers SHIFT MGR Date of Admission: 01/11/23 05:09 Date of Discharge: 01/26/23 Attending Provider at Admission: Max Carbajal MD Attending Provider at Discharge: Max Carbajal MD Primary Care Provider: Max Carbajal MD Diagnoses at Discharge Discharge Diagnosis (1) 37 weeks gestation of : Status: Resolved (2) History of rupture of uterus: Status: Resolved Reason for Visit Reason for Visit: c section Hospital Course Hospital Course The patient presented to the hospital for a repeat section. The C- section was unremarkable. Her course was also unremarkable. She did have some difficulty with pain which was addressed with pain medication. She passed flatus. Her diet was advanced. Her bleeding was minimal. Her incision look good throughout her hospital stay. Information Peripartum Data: Infant Delivery Method: Physical Exam Narrative: She is in no acute distress Lungs are clear auscultation bilaterally Her heart has a regular rate and rhythm Her fundus is below the umbilicus and firm Her dressing is clean, dry and intact Her extremities have trace edema Urinary Catheter Management: Lopez: Cath Placed During This Visit: yes, but has since been removed by the nurse Reason for Continuing Indwelling Catheter: Decision to DC Catheter Urinary Catheter Date of Insertion: 01/11/23 Urinary Catheter Time of Insertion: 07:30 Date Urinary Catheter Removed: 01/11/23 Time Urinary Catheter Discontinued: 23:00 Discharge Data Studies Completed and Pending Laboratory Results WBC 13.50 10^3/uL (3.29-11.43) H 01/11/23 23:14 RBC 3.89 10^6/uL (3.85-5.65) 01/11/23 23:14 Hgb 9.70 g/dL (11.27-16.99) L 01/11/23 23:14 Hct 31.4 % (36-47) L 01/11/23 23:14 MCV 80.7 fl (85-98) L 01/11/23 23:14 MCH 24.9 pg (27-33) L 01/11/23 23:14 MCHC 30.9 g/dL (30-55) 01/11/23 23:14 RDW 17.1 % (12.1-15.1) H 01/11/23 23:14 Plt Count 293 10^3/cmm (157-399) 10/02/23 23:14 MPV 11.4 fL (7.4-10.4) H 01/11/23 23:14 Neut % (Auto) 63.8 % 01/11/23 06:00 Lymph % (Auto) 23.8 % 01/11/23 06:00 Craven % (Auto) 10.0 % 01/11/23 06:00 Eos % (Auto) 1.5 % 01/11/23 06:00 Baso % (Auto) 0.5 % 01/11/23 06:00 Neut # (Auto) 6.20 10^3/uL (1.8-7.7) 01/11/23 06:00 Lymph # (Auto) 2.3 10^3/uL (0.8-4.8) 01/11/23 06:00 Craven # (Auto) 1.0 10^3/uL (0.2-0.9) H 01/11/23 06:00 Eos # (Auto) 0.2 10^3/uL (0.0-0.8) 01/11/23 06:00 Baso # (Auto) 0.1 10^3/uL (0.0-0.1) 01/11/23 06:00 Nucleated RBC % (auto) 0 % 01/11/23 06:00 Nucleated RBCs # 0.0 /100WBC 01/11/23 06:00 Blood Type A Positive 01/11/23 06:00 Rho(D) Type Positive 01/11/23 06:00 Antibody Screen Negative 01/11/23 06:00 Vitals Last Vital Signs Temp 97.9 F 01/12/23 04:30 Pulse 66 01/12/23 04:21 Resp 15 01/12/23 04:30 BP 109/68 01/12/23 04:21 Pulse Ox 100 01/11/23 08:45 O2 Del Method Room Air 01/11/23 08:20 Discharge Plan Discharge Patient Disposition: Home Condition: Stable Prescriptions: New ibuprofen 800 mg Tablet 800 mg PO TID Qty: 45 0RF hydrocodone-acetaminophen 5-325 mg Tablet 1 tab PO Q4H PRN (Reason: Moderate To Severe Pain) Qty: 30 0RF docusate sodium 100 mg Capsule 200 mg PO BID Qty: 56 0RF Discontinued ibuprofen 800 mg Tablet 800 mg PO TID Qty: 30 0RF hydrocodone-acetaminophen 5-325 mg Tablet 1 - 2 tab PO Q6H PRN (Reason: Moderate To Severe Pain) Qty: 20 0RF hydrocodone-acetaminophen 5-325 mg tablet 1 tab PO Q6H PRN (Reason: pain) Qty: 20 0RF ondansetron HCl 4 mg tablet 4 mg PO Q6H PRN (Reason: nausea and vomiting) Qty: 20 0RF amoxicillin-pot clavulanate 875-125 mg tablet 1 tab PO BID Qty: 20 0RF Discharge Orders: Discharge Order (Routine); Ordered 01/12/23 Ordered By: Max Carbajal Referrals: Max Carbajal MD [Primary Care Provider] - 01/18/23 9:20 am Discharge Diet: Usual diet Discharge Activity: Limit activity as instructed Patient Instructions: Hydrocodone/Acetaminophen (By mouth), Ibuprofen (By mouth), Laxative, Stool Softeners (By mouth), Polyethylene Glycol 3350 (By mouth), Depression (DC), Preeclampsia and Eclampsia After Delivery (GEN), OB - Raven/Madiha, OB Discharge Report, OB Food/Drug Interaction Guide, OB Care at Home, Opioid Safety, Abnormal Bleeding Discharge Attestations SHIFT MGR Time Spent in Discharge Care*: less than 30 min Coding Level of Care Code Acute Code for Chg Fwd Diagnoses 37 weeks gestation of Z3A.37 History of rupture of uterus Z87.828
[2023-01-12] MEDS: docusate sodium 100 mg Capsule 200 MG PO (09:05)
[2023-01-12] MEDS: ferrous sulfate EC 325 mg Tablet PO (09:05)
[2023-01-12] MEDS: polyethylene glycol 3350 Pkt 17 gm PO (09:05)
[2023-01-12] MEDS: prenatal vitamin Capsule 1 CAP PO (09:05)
[2023-01-12 13:00] VITALS: BP 126/77; PULSE 81; RESP 18; TEMP 36.6
[2023-01-12 13:09] VITALS: BP 126/77; PULSE 81
== END 2023-01-12 13:00 | disposition home or self-care (01) | DRG 788 ==
PROVIDERS: Admitting Provider Family Medicine; PCP Family Medicine; Visit Provider Family Medicine
PROC: 10D00Z1 Extraction of Products of Conception, Low, Open Approach (ICD-10-PCS; CPT 59514; principal; 2023-01-11 07:00)
DX: O34.211 Maternal care for low transverse scar from previous cesarean delivery (principal); N85.8 Other specified noninflammatory disorders of uterus; Z3A.37 37 weeks gestation of pregnancy; Z37.0 Single live birth; Z87.59 Personal history of other complications of pregnancy, childbirth and the puerperium
CPT/HCPCS: 36415; 51702; 59025; 59409; 85025; 85027; 86850; 86900; 96374; 96376; 99211; J1885; J2274; J2371; J2405; J2765; J3010; J3490; J7040; J7120; J7121